=== PATIENT | male | born 1940 | race Caucasian/White ===

== ENCOUNTER 2018-01-19 11:53 | Emergency (ER) | payer OTHER ==
[~2018-01-19] VITALS: Ht 170.2 cm; Wt 108.7 kg
[~2018-01-19 11:53] MED LIST: ARICEPT 5 MG TAB5 MG; CENTRUM SILVER1 EAC2 PO; CENTRUM SILVER1 EAC4 PO; COREG6.25 MG PO; CRESTOR10 MG PO; ELIQUIS5 MG PO; LIDODERM 5%1 PATCH TOP; LISINOPRIL20 MG PO; MELATIN3 MG PO; NAMENDA 10 MG T10 MG PO; REQUIP1 MG PO; ROBAXIN 750 MG750 M1 PO; SERTRALINE HCL50 MG PO
[2018-01-19] MEDS ORDERED: SEROQUEL 25 MG25 M1 PO ×2 (12:06→12:07)
[2018-01-19 12:47] LABS: ABSOLUTE EOSINOPHILS 0.2 thou/uL (0.0-0.7); ABSOLUTE LYMPHOCYTES 1.8 thou/uL (0.8-5.3); ABSOLUTE MONOCYTES 0.9 thou/uL (0.0-1.2); ABSOLUTE NEUTROPHILS 3.7 thou/uL (1.6-8.1); BASOPHILS 0.4 %; EOSINOPHILS 3.6 %; HEMATOCRIT 42.8 % (42.0-52.0); HEMOGLOBIN 14.5 gm/dL (14.0-18.0); LYMPHOCYTES 26.7 %; MCH 32.9 pg (26.0-34.0); MCV 96.6 fL (80.0-100.0); MONOCYTES 12.9 %; MPV 9.5 fl. (7.2-11.1); NUCLEATED RBCS 0 /100WBC; PLATELET COUNT* 156 thou/uL (150-400); POLYS 56.4 %; RBC 4.42 mil/uL (4.50-6.00); RDW-CV 12.9 % (10.5-14.5); WBC 6.6 thou/uL (4.0-11.0)
[2018-01-19 12:49] LABS: HCO3 21.8 mmol/L (22.0-26.0); PCO2 34.5 mmHg (35.0-45.0); pH 7.418 (7.340-7.450)
[2018-01-19 12:53] LABS: CALCIUM 8.6 mg/dL (8.5-10.1); CREATININE 1.1 mg/dL (0.6-1.3); POTASSIUM 4.1 mmol/L (3.5-5.1)
[2018-01-19 12:58] LABS: ALBUMIN 3.1 g/dL (3.4-5.0); TOTAL BILIRUBIN 0.5 mg/dL (<0.1-1.0); TOTAL PROTEIN 6.2 g/dL (6.4-8.2)
[2018-01-19 14:59] LABS: URINE BILIRUBIN NEGATIVE (Negative); URINE BLOOD NEGATIVE (Negative); URINE CLARITY CLEAR; URINE COLOR YELLOW; URINE GLUCOSE-RANDOM NEGATIVE (Negative); URINE KETONES NEGATIVE (Negative); URINE LEUKOCYTES-REFLEX TRACE (Negative); URINE NITRITE-REFLEX NEGATIVE (Negative); URINE PROTEIN NEGATIVE (Negative)
[2018-01-19 15:25] LABS: BACTERIA-REFLEX 1-9 Few /HPF (None Seen); CASTS None Seen /LPF (None Seen); CRYSTALS None Seen /LPF (None Seen); MUCUS 0-3 Light strn/LPF (None Seen); SQUAMOUS 0-3 Few /LPF (0-3); URINE RBC 0-2 Rare /HPF (0-2); URINE WBC-REFLEX 0-5 Rare /HPF (0-5)
[2018-01-19 15:56] VITALS: BP 137/63
--- NOTE | 2018-01-19 17:10 | EKG ---
[place] [address] ELECTROCARDIOGRAM REPORT Name: TRAVIS DAVIES Room: [facility]#: [id number] Admission: 01/19/18 Attend Phys: Discharge: 01/19/18 Date of : 44 Report #: [id number] THIS REPORT FOR: //name// [facility] ED Test Date: 2018-01-19 Test Time: 12:07:57 Pat Name: TRAVIS DAVIES Department: Room: Gender: M Machine Setter And Repairer: Charlie PEÑA : 1940 Requested By: Roxie Brumfield Order Number: [id number] MD: Renaldo Merchant Measurements Intervals [place] Rate: 74 P: 55 NM: 209 QRS: -31 QRSD: 83 T: 62 QT: 374 QTc: 415 Interpretive Statements Sinus rhythm Left axis deviation Baseline wander in lead(s) V3 Compared to ECG 04/25/2017 13:07:18 No significant changes Electronically Signed On 01-19-2018 17:10:38 CDT by Renaldo Merchant [email or web address] <ELECTRONICALLY SIGNED> By: Renaldo Merchant MD, [facility] 01/19/18 1710 1207 [id number] Renaldo Merchant MD, [facility] /EPI
== END 2018-01-19 15:56 | disposition home or self-care (01) ==
LOC: M.ERS 11:53
PROVIDERS: Personal Emergency Response Attendant
DX: I95.9 Hypotension, unspecified (principal); I10 Essential (primary) hypertension; E78.00 Pure hypercholesterolemia, unspecified; F03.90 Unspecified dementia, unspecified severity, without behavioral disturbance, psychotic disturbance, mood disturbance, and anxiety; F32.9 Major depressive disorder, single episode, unspecified

== ENCOUNTER 2018-04-04 15:23 | Emergency (ER) | payer OTHER ==
[~2018-04-04] VITALS: Ht 170.2 cm; Wt 106.6 kg
[~2018-04-04 15:23] MED LIST changes: +SEROQUEL 25 MG25 M1 PO
[2018-04-04 16:07] LABS: ABSOLUTE BASOPHILS 0.1 thou/uL (0.0-0.2); ABSOLUTE EOSINOPHILS 0.3 thou/uL (0.0-0.7); ABSOLUTE LYMPHOCYTES 2.5 thou/uL (0.8-5.3); ABSOLUTE MONOCYTES 1.2 thou/uL (0.0-1.2); ABSOLUTE NEUTROPHILS 3.7 thou/uL (1.6-8.1); BASOPHILS 1.2 %; EOSINOPHILS 3.6 %; HEMATOCRIT 45.6 % (42.0-52.0); HEMOGLOBIN 15.5 gm/dL (14.0-18.0); LYMPHOCYTES 32.4 %; MCH 33.1 pg (26.0-34.0); MCV 97.5 fL (80.0-100.0); MONOCYTES 15.7 %; MPV 9.6 fl. (7.2-11.1); NUCLEATED RBCS 0 /100WBC; PLATELET COUNT* 201 thou/uL (150-400); POLYS 47.1 %; RBC 4.68 mil/uL (4.50-6.00); RDW-CV 12.9 % (10.5-14.5); WBC 7.8 thou/uL (4.0-11.0)
[2018-04-04 16:11] LABS: URINE BILIRUBIN NEGATIVE (Negative); URINE BLOOD NEGATIVE (Negative); URINE CLARITY CLEAR; URINE COLOR YELLOW; URINE GLUCOSE-RANDOM NEGATIVE (Negative); URINE KETONES NEGATIVE (Negative); URINE LEUKOCYTES-REFLEX NEGATIVE (Negative); URINE NITRITE-REFLEX NEGATIVE (Negative); URINE PROTEIN NEGATIVE (Negative); URINE SPECIFIC GRAVITY 1.025 (1.005-1.030)
[2018-04-04 16:16] LABS: AMP/METHAMP Negative (Negative); BARBITURATES Negative (Negative); BENZODIAZEPINES Negative (Negative); COCAINE Negative (Negative); METHADONE Negative (Negative); OPIATES Negative (Negative); PCP Negative (Negative); THC Negative (Negative)
[2018-04-04 16:18] LABS: APTT 28.1 Seconds (25.0-31.3); INR 1.1; PROTIME 10.6 Seconds (9.20-11.50)
[2018-04-04 16:19] LABS: ANION GAP 8 mmol/L (7-16); BUN 15 mg/dL (7-18); CALCIUM 8.8 mg/dL (8.5-10.1); CHLORIDE 103 mmol/L (98-107); CO2 26 mmol/L (21-32); CREATININE 1.1 mg/dL (0.6-1.3); GLUCOSE 122 mg/dL (70-99); POTASSIUM 4.3 mmol/L (3.5-5.1); SODIUM 137 mmol/L (136-145)
[2018-04-04 16:35] LABS: SALICYLATE < 2.8 mg/dL (2.8-20.0)
[2018-04-04 16:36] LABS: ACETAMINOPHEN < 2 ug/mL (10-30); ALCOHOL < 10 mg/dL (<10)
[2018-04-04 16:38] LABS: ALBUMIN 3.8 g/dL (3.4-5.0); ALKALINE PHOSPHATASE 49 U/L (46-116); CK-MB MASS 0.9 ng/mL (<0.5-3.6); NT-PRO BRAIN NAT PEPTIDE 116 pg/mL (<300); SGOT 16 U/L (15-37); SGPT 17 U/L (30-65); TOTAL BILIRUBIN 0.6 mg/dL (<0.1-1.0); TROPONIN-I LEVEL <0.06 ng/mL (<0.06)
[2018-04-05 05:18] VITALS: BP 135/42
--- NOTE | 2018-04-05 09:50 | EKG ---
[place] [address] ELECTROCARDIOGRAM REPORT Name: TRAVIS DAVIES [id number] Admission: 04/04/18 Attend Phys: Discharge: 04/05/18 Date of : 44 Report #: [id number] THIS REPORT FOR: //name// 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
== END 2018-04-05 05:14 | disposition short-term general hospital (02) ==
LOC: M.ERS 15:23
PROVIDERS: Family Medicine
DX: F03.91 Unspecified dementia, unspecified severity, with behavioral disturbance (principal); I10 Essential (primary) hypertension; E78.00 Pure hypercholesterolemia, unspecified; F32.9 Major depressive disorder, single episode, unspecified

== ENCOUNTER 2018-05-01 16:27 | Emergency (ER) | payer OTHER ==
[~2018-05-01] VITALS: Ht 170.2 cm; Wt 102.1 kg
[~2018-05-01 16:27] MED LIST changes: -ABILIFY15 MG PO; -CARVEDILOL3.125 MG PO; -MELATONIN3 MG PO; -PRINIVIL20 MG PO; -XARELTO15 MG PO; -XARELTO20 MG PO; -ZOLOFT 50 MG TA50 MG PO
[2018-05-01] MEDS ORDERED: XARELTO15 MG PO (16:37)
[2018-05-01] MEDS ORDERED: CARVEDILOL3.125 MG PO (16:37)
[2018-05-01] MEDS ORDERED: PRINIVIL20 MG PO (16:37)
[2018-05-01] MEDS ORDERED: NAMENDA 10 MG T10 MG PO (16:37)
[2018-05-01] MEDS ORDERED: ABILIFY15 MG PO (16:37)
[2018-05-01] MEDS ORDERED: MELATONIN3 MG PO (16:37)
[2018-05-01] MEDS ORDERED: XARELTO20 MG PO (16:38)
[2018-05-01] MEDS ORDERED: ZOLOFT 50 MG TA50 MG PO (16:38)
[2018-05-01 17:21] LABS: HEMOGLOBIN 14.9 gm/dL (14.0-18.0); MCH 33.1 pg (26.0-34.0); MCHC 33.9 g/dL (28.0-37.0); MCV 97.6 fL (80.0-100.0); MPV 9.2 fl. (7.2-11.1); RBC 4.51 mil/uL (4.50-6.00); RDW-CV 13.2 % (10.5-14.5); WBC 7.2 thou/uL (4.0-11.0)
[2018-05-01 17:33] LABS: CALCIUM 8.9 mg/dL (8.5-10.1); CREATININE 1.1 mg/dL (0.6-1.3); POTASSIUM 4.3 mmol/L (3.5-5.1)
[2018-05-01 17:37] LABS: ALBUMIN 3.5 g/dL (3.4-5.0); TOTAL BILIRUBIN 0.5 mg/dL (<0.1-1.0); TOTAL PROTEIN 6.7 g/dL (6.4-8.2)
[2018-05-01 17:40] LABS: SALICYLATE < 2.8 mg/dL (2.8-20.0)
[2018-05-01 17:41] LABS: ACETAMINOPHEN < 2 ug/mL (10-30); ALCOHOL < 10 mg/dL (<10)
[2018-05-01 18:00] LABS: URINE BILIRUBIN NEGATIVE (Negative); URINE BLOOD NEGATIVE (Negative); URINE CLARITY CLEAR; URINE COLOR YELLOW; URINE GLUCOSE-RANDOM NEGATIVE (Negative); URINE KETONES NEGATIVE (Negative); URINE LEUKOCYTES NEGATIVE (Negative); URINE NITRITE NEGATIVE (Negative); URINE PROTEIN NEGATIVE (Negative)
[2018-05-01 18:34] LABS: AMP/METHAMP Negative (Negative); BARBITURATES Negative (Negative); BENZODIAZEPINES Negative (Negative); COCAINE Negative (Negative); METHADONE Negative (Negative); OPIATES Negative (Negative); PCP Negative (Negative); THC Negative (Negative)
[2018-05-02 08:52] VITALS: BP 122/73
== END 2018-05-02 08:53 | disposition still patient (30) ==
LOC: M.ERS 16:27
PROVIDERS: Personal Emergency Response Attendant
DX: G30.1 Alzheimer's disease with late onset (principal); F02.81 Dementia in other diseases classified elsewhere, unspecified severity, with behavioral disturbance; I10 Essential (primary) hypertension; E78.00 Pure hypercholesterolemia, unspecified; F32.9 Major depressive disorder, single episode, unspecified; Z79.899 Other long term (current) drug therapy

== ENCOUNTER → 2018-05-01 | Outpatient (CLI) | payer OTHER ==
[~2018-05-01] MED LIST changes: +ABILIFY15 MG PO; +CARVEDILOL3.125 MG PO; +MELATONIN3 MG PO; +PRINIVIL20 MG PO; +XARELTO15 MG PO; +XARELTO20 MG PO; +ZOLOFT 50 MG TA50 MG PO
== END ==
LOC: M.ULTRA 04-27 13:00
DX: I82.492 Acute embolism and thrombosis of other specified deep vein of left lower extremity (principal)